=== PATIENT | male | born 1975 | race Caucasian/White ===

== ENCOUNTER 2016-12-30 12:58 | Emergency (ER) | payer MEDICAID ==
[2016-12-30 13:24] VITALS: BP 113/61
[2016-12-30] MEDS ORDERED: IBUPROFEN 800 MG TABLET PO ONE (13:39)
--- NOTE | 2016-12-30 13:43 | ER Document Report ---
ED Extremity Problem, Lower - General Chief Complaint: Foot Injury Stated Complaint: FOOT PAIN Time Seen by Provider: 12/30/16 13:15 Mode of Arrival: Ambulatory Information source: Patient Notes: 41-year-old male presents to ED for complaint of pain in his right foot and ankle. He states he was skateboarding on Friday the concrete with his foot twisting his ankle. He states the pain kept getting worse so he decided to come and get his foot and ankle checked out. - HPI Patient complains to provider of: Injury, Pain, Swelling Location: Ankle, Foot Occurred: Other - Friday Where: Outdoors, Public place Onset/Duration: Gradual, Worse Quality of pain: Achy, Sharp, Throbbing Severity: Severe Pain Level: 5 Context: Barefoot, Fell, Twisted Recent injury: Yes Associated symptoms: Painful ambulation Exacerbated by: Hanging down, Movement, Walking Relieved by: Nothing - Related Data Allergies/Adverse Reactions: No Known Allergies Allergy (Unverified 12/30/16 13:35) Past Medical History - General Information source: Patient - Social History Smoking Status: Current Every Day Smoker Cigarette use (# per day): Yes - 4 cigarettes a day Chew tobacco use (# tins/day): No Smoking Education Provided: Yes - Less than 3 minutes Frequency of alcohol use: Social Drug Abuse: None Occupation: clay artist Lives with: Family Family History: Arthritis, CAD, COPD, CVA, DM, Hyperlipidemia, Hypertension, Malignancy. denies: Thyroid Disfunction Patient has suicidal ideation: No Patient has homicidal ideation: No - Past Medical History Cardiac Medical History: Reports: None Pulmonary Medical History: Reports: None EENT Medical History: Reports: None Neurological Medical History: Reports: None Endocrine Medical History: Reports: None Renal/ Medical History: Reports: None Malignancy Medical History: Reports None GI Medical History: Reports: None Musculoskeltal Medical History: Reports Hx Musculoskeletal Deformity, Reports Hx Musculoskeletal Trauma Skin Medical History: Reports None Psychiatric Medical History: Reports: None Traumatic Medical History: Reports: Hx Fractures - Bilateral feet Infectious Medical History: Reports: None Surgical Hx: Negative Past Surgical History: Reports: None Review of Systems - Review of Systems Constitutional: No symptoms reported EENT: No symptoms reported Cardiovascular: No symptoms reported Respiratory: No symptoms reported Gastrointestinal: No symptoms reported Genitourinary: No symptoms reported Male Genitourinary: No symptoms reported Musculoskeletal: Ankle swelling - Pain and swelling to the right ankle and foot Skin: Other - To right foot and ankle Hematologic/Lymphatic: No symptoms reported Neurological/Psychological: No symptoms reported -: Yes All other systems reviewed and negative Physical Exam - Vital signs Vitals: Temp Pulse Resp BP Pulse Ox 97.7 F 84 16 113/61 99 12/30/16 13:22 12/30/16 13:22 12/30/16 13:22 12/30/16 13:22 12/30/16 13:22 Interpretation: Normal - General General appearance: Appears well, Alert - HEENT Head: Normocephalic, Atraumatic Eyes: Normal Pupils: PERRL - Respiratory Respiratory status: No respiratory distress Chest status: Nontender Breath sounds: Normal Chest palpation: Normal - Cardiovascular Rhythm: Regular Heart sounds: Normal auscultation Murmur: No - Abdominal Inspection: Normal Distension: No distension Bowel sounds: Normal Tenderness: Nontender Organomegaly: No organomegaly - Back Back: Normal, Nontender - Extremities General upper extremity: Normal inspection, Nontender, Normal color, Normal ROM , Normal temperature General lower extremity: Normal color, Normal temperature. No: Kamran's sign Ankle: Tender, Ecchymosis, Edema, Limited ROM. No: Abrasion, Deformity, Instability, Laceration, Positive Lazaro's test, Unable to bear weight - Painful ambulation Foot: Tender, Ecchymosis, Edema, Metatarsal compress. pain, No evidence of FB, Tender 5th metatarsal. No: Abrasion, Deformity, Instability, Laceration, Navicular tenderness, Puncture wound, Unable to bear weight - Painful ambulation - Neurological Neuro grossly intact: Yes Cognition: Normal Orientation: AAOx4 Norman Coma Scale Eye Opening: Spontaneous Norman Coma Scale Verbal: Oriented Jamin Coma Scale Motor: Obeys Commands Norman Coma Scale Total: 15 Speech: Normal Motor strength normal: LUE, RUE, LLE, RLE Sensory: Normal - Psychological Associated symptoms: Normal affect, Normal mood - Skin Skin Temperature: Warm Skin Moisture: Dry Skin Color: Normal Course - Re-evaluation Re-evalutation: 12/30/16 14:40 Xrays discussed with patient and written report discussed with patient. Patient discharged home with prescription fo4r ibuprofen and instruction for care of injured foot. - Vital Signs Vital signs: Temp Pulse Resp BP Pulse Ox 97.7 F 84 16 113/61 99 12/30/16 13:22 12/30/16 13:22 12/30/16 13:22 12/30/16 13:22 12/30/16 13:22 - Diagnostic Test Radiology reviewed: Image reviewed, Reports reviewed Discharge - Discharge Clinical Impression: Contusion of right foot Qualifiers: Encounter type: initial encounter Qualified Code(s): S90.31XA - Contusion of right foot, initial encounter Condition: Stable Disposition: HOME, SELF-CARE Instructions: Family Physicians / Practices Additional Instructions: CONTUSION: Your injury has resulted in a contusion -- a crushing of the deep tissues. No injury to important structures was detected during the physician's exam. Contusions vary in the amount of pain they cause, and in the length of time required for healing. Typically, the area will become bruised, and will remain painful to touch for two or three weeks. However, most patients are back to working and playing within a few days. After the initial period of rest and cold-packs, your symptoms (together with the doctor's recommendations) will determine how rapidly you can get back to full activity. Usually this means "do what feels okay, but don't do things that hurt." If re-examination was recommended, it's important to follow up as instructed. Call the doctor or return any time if pain increases, if swelling becomes severe, if you develop numbness or weakness in an injured extremity, or if any other alarming symptoms occur. USE OF TYLENOL (ACETAMINOPHEN): Acetaminophen may be taken for pain relief or fever control. It's much safer than aspirin, offering a wider range of "safe" dosages. It is safe during . Some brand names are Tylenol, Panadol, Datril, Anacin 3, Tempra, and Liquiprin. Acetaminophen can be repeated every four hours. The following are maximum recommended dosages: WEIGHT Dose Drops Elixir Chewable( 80mg) (LBS.) drprs=droppers tsp=teaspoon 6 40 mg 0.4 ml (1/2) 6-11 80 mg 0.8 ml (full) tsp 1 tab 12-16 120 mg 1 1/2 drprs 3/4 tsp 1 1/2 tabs 17-23 160 mg 2 drprs 1 tsp 2 tabs 24-30 240 mg 3 drprs 1 1/2 tsp 3 tabs 30-35 320 mg 2 tsp 4 tabs 36-41 360 mg 2 1/4 tsp 4 1/2 tabs 42-47 400 mg 2 1/2 tsp 5 tabs 48-53 480 mg 3 tsp 6 tabs 54-59 520 mg 3 1/4 tsp 6 1/2 tabs 60-64 560 mg 3 1/2 tsp 7 tabs 65-70 600 mg 3 3/4 tsp 7 1/2 tabs 71-76 640 mg 4 tsp 8 tabs 77-82 720 mg 4 1/2 tsp 9 tabs 83-88 800 mg 5 tsp 10 tabs >89 pounds or adults 650 mg to 900 mg Acetaminophen can be repeated every four hours. Maximum dose not to exceed 4000 mg a day. These maximum recommended dosages are slightly higher than the dosages written on the product container, but these dosages are very safe and below the toxic dosage for acetaminophen. ICE & ELEVATION: Apply ice packs frequently against the painful area. Many different schedules are recommended, such as "20 minutes on, 20 minutes off" or "one hour ice, two hours rest." If you need to work, you may need to go longer between ice treatments. You should plan to have the area ice packed AT LEAST one- fourth of the time. The ice should be applied over the wrap, tape, or splint, or over a layer of cloth -- not directly against the skin. Some ice bags have a built-in cloth and can be put directly on the skin. Your injured part should be elevated as much as possible over the next 48 hours. Try to keep the injury above the level of the heart. Avoid use of the injured area. Elevation and rest will decrease the swelling. USE OF SDVL-LNY-BCRKMPU IBUPROFEN: Ibuprofen (Advil, Nuprin, Medipren, Motrin IB) is a medication for fever and pain control. In addition, it has anti- inflammatory effects which may be beneficial, especially in the treatment of injuries. It's best to take ibuprofen with food. Persons with ulcer disease or allergy to aspirin should notify their physician of this before taking ibuprofen. Ibuprofen can be given every four to six hours, for a total of four doses daily. Age Pain or fever dose Antiinflammatory dose 6-8 yr 200 mg (1 tab) 200 mg (1 tab) 9-11 yr 200 mg (1 tab) 200-400 mg (1-2 tab) 11-14 yr 200-400 mg (1-2 tab) 400 mg (2 tab) 15-adult 400 mg (2 tab) 600 mg (3 tab) FOLLOW-UP CARE: If you have been referred to a physician for follow-up care, call the physician s office for an appointment as you were instructed or within the next two days. If you experience worsening or a significant change in your symptoms, notify the physician immediately or return to the Emergency Department at any time for re-evaluation. Prescriptions: Ibuprofen 800 mg PO Q8HP PRN #20 tablet PRN Reason: Forms: Smoking Cessation Education Referrals: NICKOLAS LIU DO [ACTIVE STAFF] - Follow up as needed
--- NOTE | 2016-12-30 14:28 | RADIOLOGY REPORT (SQ) ---
EXAM DESCRIPTION: FOOT RIGHT COMPLETE COMPLETED DATE/TIME: 12/30/2016 2:15 pm REASON FOR STUDY: Fall pain injury COMPARISON: None. NUMBER OF VIEWS: Three views. TECHNIQUE: AP, lateral and oblique radiographic images acquired of the right foot. LIMITATIONS: None. FINDINGS: MINERALIZATION: Normal. BONES: No acute fracture or dislocation. No worrisome bone lesions. JOINTS: No effusions. SOFT TISSUES: There is calcification in the plantar fascia. OTHER: No other significant finding. IMPRESSION: NEGATIVE STUDY OF THE RIGHT FOOT. NO RADIOGRAPHIC EVIDENCE OF ACUTE INJURY. TECHNICAL DOCUMENTATION: JOB ID: [id number] [employer]- All Rights Reserved
--- NOTE | 2016-12-30 14:29 | RADIOLOGY REPORT (SQ) ---
EXAM DESCRIPTION: ANKLE RIGHT COMPLETE COMPLETED DATE/TIME: 12/30/2016 2:15 pm REASON FOR STUDY: Fall pain injury COMPARISON: None. NUMBER OF VIEWS: Three views. TECHNIQUE: AP, lateral, and oblique radiographic images acquired of the right ankle. LIMITATIONS: None. FINDINGS: MINERALIZATION: Normal. BONES: No acute fracture or dislocation. No worrisome bone lesions. JOINTS: No effusions. SOFT TISSUES: There is soft tissue swelling, more on the lateral than the medial side. On the AP vie w there are some irregular calcifications seen in the lateral soft tissues OTHER: No other significant finding. IMPRESSION: 1. No acute osseous abnormality. 2. Soft tissue calcifications laterally, possibly suggesting prior injury. TECHNICAL DOCUMENTATION: JOB ID: [id number] [employer]- All Rights Reserved
== END 2016-12-30 14:42 | disposition home or self-care (01) ==
LOC: ER 12:58
DX: S90.31XA Contusion of right foot, initial encounter (principal); M25.571 Pain in right ankle and joints of right foot; X50.1XXA Overexertion from prolonged static or awkward postures, initial encounter; Y93.51 Activity, roller skating (inline) and skateboarding; F17.210 Nicotine dependence, cigarettes, uncomplicated
CPT/HCPCS: 99283

== ENCOUNTER 2017-02-01 13:31 | Emergency (ER) | payer MEDICAID ==
[2017-02-01 13:39] VITALS: BP 131/86
--- NOTE | 2017-02-01 14:08 | ER Document Report ---
ED Hand/Wrist Injury - General Chief Complaint: Hand Pain Stated Complaint: WRIST/HAND PAIN, NUMBNESS Time Seen by Provider: 02/01/17 14:02 Mode of Arrival: Ambulatory Information source: Patient Notes: Patient is a 41-year-old male states he just moved here from [place] 3 weeks ago. He is here with his family and when leaving her patient forgot his medications as well as his splints for his carpal tunnel. He is here today because of carpal tunnel is increasingly getting more painful and he is working construction currently. He also has complaint of a macular rash behind both knees and down the back of his legs. TRAVEL OUTSIDE OF THE [place] IN LAST 30 DAYS: No - HPI Patient complains to provider of: Carpal tunnel pain Injury to: Elbow, Hand, Wrist Onset: Last week Where: Other - Accumulation of everywhere Timing: Constant, Waxing and waning, Still present Quality of pain: Burning, Other - Numbness Severity: Moderate Pain Level: 3 Context: Other - Repetitive motion - Related Data Allergies/Adverse Reactions: No Known Allergies Allergy (Verified 02/01/17 13:38) Home Medications: Current Home Medications Gabapentin 1 tab PO TID 02/01/17 [History] Past Medical History - General Information source: Patient - Social History Smoking Status: Current Every Day Smoker Cigarette use (# per day): Yes - 2 cigarettes a day Chew tobacco use (# tins/day): No Smoking Education Provided: Yes Frequency of alcohol use: None Drug Abuse: None Lives with: Family, Spouse/Significant other Family History: Arthritis, CAD, COPD, CVA, DM, Hyperlipidemia, Hypertension, Malignancy. denies: Thyroid Disfunction Patient has suicidal ideation: No Patient has homicidal ideation: No Renal/ Medical History: Denies: Hx Peritoneal Dialysis Musculoskeltal Medical History: Reports Hx Musculoskeletal Deformity, Reports Hx Musculoskeletal Trauma Traumatic Medical History: Reports: Hx Fractures - Bilateral feet Review of Systems - Review of Systems Constitutional: No symptoms reported EENT: No symptoms reported Cardiovascular: No symptoms reported Respiratory: No symptoms reported Gastrointestinal: No symptoms reported Genitourinary: No symptoms reported Male Genitourinary: No symptoms reported Musculoskeletal: Joint pain, Joint swelling, Muscle pain Skin: Rash Hematologic/Lymphatic: No symptoms reported Neurological/Psychological: No symptoms reported -: Yes All other systems reviewed and negative Physical Exam - Vital signs Vitals: Temp Pulse Resp BP Pulse Ox 98.0 F 81 18 131/86 H 97 02/01/17 13:38 02/01/17 13:38 02/01/17 13:38 02/01/17 13:38 02/01/17 13:38 Interpretation: Hypertensive - General General appearance: Other - Uncomfortable In distress: Mild - HEENT Head: Normocephalic, Atraumatic Eyes: Normal - Respiratory Respiratory status: No respiratory distress Chest status: Nontender Breath sounds: Normal. No: Decreased air movement, Nonproductive cough, Productive cough, Rales, Rhonchi, Stridor, Wheezing, Other - Cardiovascular Rhythm: Regular Heart sounds: Normal auscultation Murmur: No - Back Back: Normal, Nontender. No: Tender, Deformity/step-off, CVA tenderness, Vertebra tenderness, Scars, Scoliosis, Wounds, Other - Extremities General upper extremity: Tender, Normal temperature. No: Normal inspection, Nontender, Edema, Normal color, Normal ROM, Normal strength, Other General lower extremity: Normal inspection, Nontender, Normal ROM, Normal strength, Normal weight bearing. No: Tender, Edema, Normal color, Normal temperature, Kamran's sign, Other Shoulder: Normal Wrist: Tender, Limited ROM, Other - Examination patient's bilateral wrist shows that he has some mild swelling in the area of the proximal palm and dorsum of the hand to the wrist. Patient has positive Tinel sign positive Phalen sign bilaterally Hand: Normal Calf: Other - Examination patient's lower extremities show that he has a macular rash on the backs of each calf area. It appears to be a contact dermatitis of sorts rest of his body is cleaned from this type of presentation Ankle: Normal - Neurological Neuro grossly intact: Yes Cognition: Normal Orientation: AAOx4 Jamin Coma Scale Eye Opening: Spontaneous Jamin Coma Scale Verbal: Oriented [place] Coma Scale Motor: Obeys Commands [place] Coma Scale Total: 15 Speech: Normal - Skin Skin Temperature: Warm Skin Moisture: Dry Skin Color: [place] Skin irregularity: Rash Location of irregularity: Extremities, Other - Lower extremities only Character of irregularity: Symmetric, Macular, Confluent Course - Vital Signs Vital signs: Temp Pulse Resp BP Pulse Ox 98.0 F 81 18 131/86 H 97 02/01/17 13:38 02/01/17 13:38 11/18/17 13:38 02/01/17 13:38 02/01/17 13:38 - Transfer of Care Notes: 02/01/17 14:17 As stated since patient states he was recently relocated from [place] to here and is currently living with his cousin I will refill his gabapentin 800 mg 3 times daily I will place him on a steroid taper for the rash as well as the carpal tunnel may help to. Patient will establish with a primary care relatively soon. Patient states he just got insurance so he really wants to establish and have his whole body checked out. Discharge - Discharge Clinical Impression: Carpal tunnel syndrome, bilateral Contact dermatitis Qualifiers: Contact dermatitis type: unspecified Contact dermatitis trigger: unspecified trigger Qualified Code(s): L25.9 - Unspecified contact dermatitis, unspecified cause Condition: Good Disposition: HOME, SELF-CARE Instructions: Carpal Tunnel Syndrome ([facility]), Contact Dermatitis ([facility]) Additional Instructions: As we discussed it is a good idea to establish with a primary care provider as soon as possible following her medical needs. This time will also be possible for them to write you for her heavy follow-up with orthopedist for further intervention of the carpal tunnel symptomatology. The steroid should help with the carpal tunnel as well as help with the rash on the back of your legs. Should you have any concerns or problems return to ER for recheck. He may also consider getting some type of a stiff brace for both wrist areas so that it will keep straight at night while you sleep. Also when you get home from work ice down both areas for 30 minutes. Prescriptions: Gabapentin 800 mg PO TID #50 tablet Methylprednisolone [Medrol Dosepack (4 mg/Tab) 21 Tab/Dosepak] 4 mg PO ASDIR PRN #21 tab.ds.pk PRN Reason: Forms: Elevated Blood Pressure, Return to Work
== END 2017-02-01 14:25 | disposition home or self-care (01) ==
LOC: ER 13:31
DX: G56.03 Carpal tunnel syndrome, bilateral upper limbs (principal); L25.9 Unspecified contact dermatitis, unspecified cause; M25.531 Pain in right wrist; M25.532 Pain in left wrist; M79.641 Pain in right hand; M79.642 Pain in left hand; Z79.899 Other long term (current) drug therapy; F17.210 Nicotine dependence, cigarettes, uncomplicated
CPT/HCPCS: 99283